=== PATIENT | male | born 1965 | race Hispanic/Latino ===

== ENCOUNTER 2022-04-29 15:31 | Outpatient (CLI) | payer BC | END 2022-04-29 15:32 | disposition home or self-care (01) | LOC: LABBT 15:31 | PROVIDERS: ATTEND Internal Medicine Gastroenterology | DX: Z20.822 Contact with and (suspected) exposure to COVID-19 (principal) | CPT/HCPCS: 87811 ==

== ENCOUNTER 2022-05-04 08:45 | Day surgery (SDC) | payer BC ==
[2022-04-30 16:16] VITALS: BMI 38.3
[2022-05-04] MEDS ORDERED: PROPOFOL 200 MG/20 ML VIAL ONE (11:10)
[2022-05-04] MEDS ORDERED: Lidocaine 1% PF 5 ML VIAL ONE (11:10)
== END 2022-05-04 12:36 | disposition home or self-care (01) ==
LOC: SDC 08:45
PROVIDERS: ATTEND Internal Medicine Gastroenterology
PROC: 0DJD8ZZ Inspection of Lower Intestinal Tract, Via Natural or Artificial Opening Endoscopic (ICD-10-PCS; principal; 2022-05-04)
DX: R19.5 Other fecal abnormalities (principal); I10 Essential (primary) hypertension; E11.9 Type 2 diabetes mellitus without complications; E78.5 Hyperlipidemia, unspecified; F17.210 Nicotine dependence, cigarettes, uncomplicated; E66.01 Morbid (severe) obesity due to excess calories; Z68.38 Body mass index [BMI] 38.0-38.9, adult; Z79.84 Long term (current) use of oral hypoglycemic drugs; Z79.899 Other long term (current) drug therapy; Z88.8 Allergy status to other drugs, medicaments and biological substances
CPT/HCPCS: J2704